=== PATIENT | male | born 1985 | race Caucasian/White ===

== ENCOUNTER 2020-05-03 10:31 | Emergency (ER) | payer OTHER, MEDICAID, SELFPAY ==
[2020-05-03] VITALS (13 sets, daily range): BP systolic 99–114; BP diastolic 57–86; PULSE 77–97; RESP 20–24; TEMP 36.9–37.2; O2SAT 91–95; BMI 33.5
--- NOTE | 2020-05-03 10:46 | DI.RAD.S_ITS ---
PROCEDURE: XR CHEST 2V INDICATIONS: possible aspiration, shortness of breath TECHNIQUE: 2 views of the chest were acquired. COMPARISON: [facility], , CHEST 2 VIEW, 12/13/2017, 17:59. FINDINGS: Surgical changes and devices: None. Lungs and pleura: Left lung base/retrocardiac airspace opacity. Mild suprahilar airspace opacity bilaterally which appears similar to the prior exam. No pleural effusions or pneumothorax. Bronchial wall thickening is seen. Mediastinum: Mediastinal contours are normal. Heart size is normal. Bones and chest wall: No suspicious bony abnormalities. Soft tissues appear unremarkable. IMPRESSION: Left lower lobe airspace opacity. Concern for aspiration or pneumonia. Dictated by: Natan Jones M.D. on 05/03/2020 at 11:34 Approved by: Natan Jones M.D. on 05/03/2020 at 11:35
[2020-05-03] MEDS: ALBUTEROL 2.5 MG/3 ML NEB (ADULT) INH ×4 (10:48→17:26)
--- NOTE | 2020-05-03 11:45 | DI.CT.S_ITS ---
PROCEDURE: CT CHEST WO CON INDICATIONS: chocked on peanuts 4 days ago, concerns for retaining peanut TECHNIQUE: Noncontrast 5 mm thick sections acquired from the pulmonary apices to the posterior costophrenic angles. 1 mm lung window, 5 mm thick coronal and sagittal and 7 mm axial MIP reformats were then acquired. For radiation dose reduction, the following was used: automated exposure control, adjustment of mA and/or kV according to patient size. COMPARISON: [facility], , CHEST 2 VIEW, 12/13/2017, 17:59. [facility], CR, XR CHEST 2V, 05/03/2020, 10:52. FINDINGS: Image quality: There are respiratory motion artifacts. Lungs and pleura: Bilateral patchy ground-glass and nodular opacities consistent with aspiration pneumonia, predominantly involving the right upper lobe and left lower lobe. There is right upper lobe and lingula atelectasis. There is bronchial wall thickening bilaterally. There is narrowing and filling defect of the right lower lobe lobar bronchus, probably secondary to combination of bronchial wall thickening and mucous. The right lower lobe a small lucent, likely secondary to air trapping. A 3 mm nodular density independent distal trachea at the level of piper is probably a mucous secretion material or small foreign body fragment. Trace left pleural effusion. No pneumothorax. Mediastinum: Heart size is normal. No pericardial effusion. Prominent mediastinal adenopathy is likely reactive. Thoracic aorta and central pulmonary arteries are normal in size. Esophagus is normal in caliber. Small hiatal hernia. Bones and chest wall: No suspicious bony lesions. No vertebral body compression fractures. No axillary or supraclavicular adenopathy by size criteria. Thyroid gland normal. Abdomen: Visualized upper abdominal solid organs and bowel loops appear normal in the absence of contrast. IMPRESSION: 1. Aspiration pneumonia bilaterally, most severe in right upper lobe and left lower lobe. 2. Narrowing of the right lower lobe bronchus. The right lower lobe is more lucent, likely secondary to air trapping. 3. Bronchial wall thickening bilaterally. 4. Right upper lobe and lingula atelectasis. 5. Trace left pleural effusion. Dictated by: Josh Rojas M.D. on 05/03/2020 at 12:05 Approved by: Josh Rojas M.D. on 05/03/2020 at 12:41
[2020-05-03 12:26] LABS: Add Manual Diff / Slide Review NO; Basophils Absolute Auto 100 /uL (0-100); Basophils Percent Auto 0.9 % (0-2); Eosinophils Absolute Auto 300 /uL (0-450); Eosinophils Percent Auto 2.5 % (2-4); Hematocrit 39.8 % (41-53); Hemoglobin 13.4 g/dL (13.5-17.5); Lymphocytes Absolute Auto 2200 /uL (1100-4500); Lymphocytes Percent Auto 20.4 % (25-40); Mean Corpuscular HGB Conc 33.7 % (30-36); Mean Corpuscular Hemoglobin 32.4 PG (26-34); Mean Corpuscular Volume 96.2 fL (80-100); Monocytes Absolute Auto 800 /uL (0-900); Monocytes Percent Auto 7.8 % (3-14); Neutrophils Absolute Auto 7200 /uL (1500-7000); Neutrophils Percent Auto 68.4 % (50-75); Platelet Count 266 X10^3/uL (150-400); Red Blood Cell Count 4.14 X10^6/uL (4.5-5.9); Red Cell Distribution Width 13.8 % (11.6-14.8); White Blood Cell Count 10.6 X10^3/uL (4.5-11.0)
--- NOTE | 2020-05-03 12:27 | PC.NURSE ---
This RN started IV, left room to get fluids and patient removed his IV. Mom does not want him to have another IV at this time. Notified Warren. She will talk to her
[2020-05-03 12:39] LABS: Alanine Aminotransferase 19 IU/L (<50); Albumin 3.9 g/dL (3.5-5.0); Albumin Globulin Ratio 1.1 (1.0-2.8); Alkaline Phosphatase 81 U/L (38-126); Aspartate Aminotransferase 25 IU/L (17-59); BUN Creatinine Ratio 18.9 (6-22); Bilirubin Total 0.7 mg/dL (0.2-1.3); Blood Urea Nitrogen 14 mg/dL (9-20); Calcium 9.2 mg/dL (8.4-10.2); Carbon Dioxide 30 mmol/L (22-32); Chloride 104 mmol/L (98-107); Estimated Glomerular Filt Rate > 60.0 mL/min (>60); Globulin 3.7 g/dL (1.7-4.1); Glucose 99 mg/dL (70-100); HEMOLYSIS < 15 (0-50); Potassium 4.4 mmol/L (3.4-5.1); Sodium 141 mmol/L (137-145); Total Protein 7.6 g/dL (6.3-8.2)
[2020-05-03 12:40] LABS: Lactate (Lactic Acid) 3.1 mmol/L (0.7-2.1)
[2020-05-03 12:53] LABS: Procalcitonin < 0.05 ng/mL (<0.5)
--- NOTE | 2020-05-03 13:19 | ED_ITS ---
HPI - SOB/Dyspnea <SHAUNA Olsen - Last Filed: 05/03/20 18:44> General Chief Complaint: Shortness of Breath/Dyspnea Stated Complaint: asthma attack Time Seen by Provider: 05/03/20 11:03 Source: family Mode of arrival: Wheelchair Limitations: language barrier History of Present Illness HPI Narrative: This is a 34 year male, nonsmoker, who has down syndrome with developmental delay and mild intermittent asthma presents to ED with mother who is retired pediatric physician with concerns for aspiration pneumonia. Mother reports he had handful of peanuts 4 days ago and he was choking and coughing. Since then, patient has wheezing requiring albuterol inhaler use every 3 hours while he is awake. Yesterday mother noticed his skin turned red and flushed and increasing short of breath mild exertion. Patient had vomited this morning after eating breakfast and looks like he is nauseated by witnessing gagging frequently. Mother reports patient rarely get asthma attack. Patient had once another aspiration pneumonia from eating peanuts and family have been cautious but somehow patient got to pain as before stopping. Since patient has low immune system from Down syndrome he gets pneumonia relatively frequently. Mother reports after the neb treatment in the ED, he was able to expectorated thick yellow mucus. Related Data Home Medications Medication Instructions Recorded Confirmed albuterol sulfate [Ventolin HFA] Unknown #0 12/13/17 fluoxetine 30 mg 05/03/20 levothyroxine 05/03/20 Allergies Allergy/AdvReac Type Severity Reaction Status Date / Time No Known Drug Allergies Allergy Verified 05/03/20 10:50 Review of Systems <SHAUNA Olsen - Last Filed: 05/03/20 18:44> Review of Systems Narrative: General: Denies (+) fever, chills, fatigue, malaise, sweats. HEENT: Denies sinus pain, ear pain, sore throat, difficulty swallowing, dizziness. Respiratory: See HPI Cardiovascular: Denies chest pain, palpitations, orthopnea, edema. Gastrointestinal: See HPI : Denies dysuria, frequency, incontinence, hematuria, urinary retention. Musculoskeletal: Denies weakness, joint pain or bony pain. Skin: Denies rash, skin lesions, or other. Neurologic: Denies weakness, headache, numbness, change in speech, confusion, seizures, incoordination. Psychiatric: Reports history of obsessive compulsive disorder. 12-point review of systems is negative except for those stated above. Patient History <SHAUNA Olsen - Last Filed: 05/03/20 18:44> Medical History Down syndrome (Acute) History of developmental delay (Acute) Hypothyroidism (Acute) Mild asthma (Acute) Obsessive compulsive disorder (Acute) Social History Smoking Status: Never smoker Smoking Status: Never smoker Substance Use Type: does not use Exam <SHAUNA Olsen - Last Filed: 05/03/20 18:44> Narrative Exam Narrative: GEN: Alert, oriented x 3, well appearing and nourished, and in no acute distress. Head: Normal cephalic, atraumatic. No scalp or temporal tenderness, palpable mass or rash. EYES: Pupils are equal, round, and reactive to light and accommodation. Extraocular muscles are intact bilaterally. There is no subconjunctival hemorrhage, exudate and sclera non-icteric. ENT: Bilateral auditory canals and tympanic membranes clear. Hearing grossly intact. Nose without bleeding, purulent discharge or deviation. Facial sinuses nontender to palpate. Mucous membrane moist, no mucosal lesion. Throat without erythema, tonsillar hypertrophy or exudate. Uvula in midline, airway patent. Neck: Trachea in midline. No JVD, non-tender without lymphadenopathy. No masses or thyroid megaly. Supple, non-tender and no meningeal signs. CARDIAC: Normal regular rate and rhythm without murmurs, gallops, or rubs. No chest wall tenderness. No peripheral edema, cyanosis or pallor. Capillary refill is less than 2 seconds. RESPIRATORY: Audible wheezing without the stethoscope. Lungs wheeze throughout in all lobes.. Intermittent nonproductive cough. No stridor, respiratory dis tress, increase work of breathing, or accessary muscle used. ABD: Abdomen soft, nontender and non-distended. No guarding or rebound tenderness to palpate. Bowel sounds are normal in all 4 quadrants. There is no palpable masses or organomegaly. EXT: Full painless ROM of all extremities with no loss of sensation, strength, effusion or edema. SKIN: Warm, dry, normal color for patient. No erythema, lesions or rash over visible areas. BACK: Nontender without deformity or crepitance. No flank tenderness. NEUROLOGICAL: Awake and alert. Interacts well with mother. Initial Vital Signs Initial Vital Signs: Vital Signs Temperature 98.5 F 05/03/20 10:42 Pulse Rate 83 05/03/20 10:42 Respiratory Rate 24 05/03/20 10:42 Blood Pressure 114/86 05/03/20 10:42 Pulse Oximetry 91 05/03/20 10:42 <Jared Rizvi MD - Last Filed: 05/04/20 07:18> Initial Vital Signs Initial Vital Signs: Vital Signs Temperature 98.5 F 05/03/20 10:42 Pulse Rate 83 05/03/20 10:42 Respiratory Rate 24 05/03/20 10:42 Blood Pressure 114/86 05/03/20 10:42 Pulse Oximetry 91 05/03/20 10:42 Scores <SHAUNA Olesn - Last Filed: 05/03/20 18:44> GCS [place] coma scale eye opening: Spontaneous Shannan coma scale verbal response: Orientated [place] coma scale motor response: Obey commands Shannan coma scale total score: 15 qSOFA Altered Mental Status (GCS <15): No Respiratory rate greater than/equal to 22: No Systolic blood pressure less than or equal to 100: No qSOFA Total: 0 0-1 Not High Risk 1-3 High risk Course <SHAUNA Olsen - Last Filed: 05/03/20 18:44> Orders Ordered: Discontinued Medications Albuterol (Ventolin) 2.5 mg INH NOW ONE Stop: 05/03/20 10:47 Last Admin: 05/03/20 10:48 Dose: 2.5 mg Documented by: KENNETH Albuterol (Ventolin) 2.5 mg INH NOW ONE Stop: 05/03/20 11:39 Last Admin: 05/03/20 12:39 Dose: 2.5 mg Documented by: ELBA Albuterol (Ventolin) 2.5 mg INH NOW ONE Stop: 05/03/20 16:27 Last Admin: 05/03/20 16:30 Dose: 2.5 mg Documented by: TANRIDLOREN Albuterol (Ventolin) 2.5 mg INH NOW ONE Stop: 05/03/20 16:56 Last Admin: 05/03/20 17:26 Dose: 2.5 mg Documented by: ELBA Sodium Chloride (Normal Saline 0.9%) 500 mls @ 1,000 mls/hr IV BOLUS ONE Stop: 05/03/20 12:07 Last Admin: 05/03/20 15:14 Dose: Not Given Documented by: ESTRELLITA Piperacillin/Tazobactam/Dextrose (Zosyn) 4.5 gm in 100 mls @ 200 mls/hr IV NOW ONE Stop: 05/03/20 13:22 Last Infusion: 05/03/20 15:14 Dose: 0 mls/hr Documented by: Admin: 05/03/20 13:44 Dose: 200 mls/hr Documented by: ESTRELLITA Sodium Chloride (Normal Saline 0.9%) 1,000 mls @ 1,000 mls/hr IV BOLUS ONE Stop: 05/03/20 13:57 Last Infusion: 05/03/20 15:14 Dose: 0 mls/hr Documented by: Admin: 05/03/20 13:44 Dose: 1,000 mls/hr Documented by: ESTRELLITA Reevaluation(s) Reevaluation #1: The patient is able to speak short sentences without difficulty without respiratory distress. Receiving IV fluid and IV antibiotic medication. Keeping O2 said and 91-92% in room air. Time: 14:20 Reevaluation #2: Another nebulizer treatment has been ordered secondary to recurring coughing. Time: 16:31 Consultations Consultation #1: 1300-Spoke with , hospitalist to consult for admission. Concerns for possible bronchoscopy either to remove possible foreign body versus mucus aspiration in lower lobes in his lungs. If bronchoscope is not able to be done by surgeon in , recommended patient to be transferred to acute facility. Time: 13:00 Consultation #2: Dr. Blackmon, surgeon, paged but no returned call, and is in OR, projecting till 1415. Time: 13:07 Consultation #3: [facility] has been contacted to consult and possible transfer. Time: 13:30 Additional Consultation(s): 1415-Dr. Blackmon paged again. 1445-Dr. Blackmon called and informed that does not do bronchoscopy. 1518-Dr. Christiansen, Strategic Manager, at [facility] consulted and it was recommended to talk to hospitalist for admission and patient does not require to be in ICU. 5075-Spoke with STERLING Simpson, Hospitalist at [facility] she kindly accepted patient's care for possible bronchoscopy procedure and continuing IV IV medication therapy for aspiration pneumonia Vital Signs Vital signs: Vital Signs - 8 hr 05/03/20 10:42 05/03/20 10:48 05/03/20 12:29 Temperature 98.5 F Pulse Rate 83 77 83 Respiratory Rate 24 20 24 Blood Pressure 114/86 107/57 L Pulse Oximetry 91 94 92 05/03/20 13:01 05/03/20 14:54 05/03/20 15:00 Temperature Pulse Rate 97 H 81 85 Respiratory Rate 24 Blood Pressure 101/73 Pulse Oximetry 92 05/03/20 15:30 05/03/20 16:00 05/03/20 16:01 Temperature Pulse Rate 85 87 83 Respiratory Rate Blood Pressure 114/81 Pulse Oximetry 93 92 92 05/03/20 16:25 05/03/20 16:31 05/03/20 17:44 Temperature 99 F Pulse Rate 91 H 78 Respiratory Rate 20 Blood Pressure 99/83 Pulse Oximetry 95 94 <Jared Rizvi MD - Last Filed: 05/04/20 07:18> Orders Ordered: Discontinued Medications Albuterol (Ventolin) 2.5 mg INH NOW ONE Stop: 05/03/20 10:47 Last Admin: 05/03/20 10:48 Dose: 2.5 mg Documented by: RSELFRIDGE Albuterol (Ventolin) 2.5 mg INH NOW ONE Stop: 05/03/20 11:39 Last Admin: 05/03/20 12:39 Dose: 2.5 mg Documented by: STESTEFANIA Albuterol (Ventolin) 2.5 mg INH NOW ONE Stop: 05/03/20 16:27 Last Admin: 05/03/20 16:30 Dose: 2.5 mg Documented by: RSELFRIDGE Albuterol (Ventolin) 2.5 mg INH NOW ONE Stop: 05/03/20 16:56 Last Admin: 05/03/20 17:26 Dose: 2.5 mg Documented by: ELBA Sodium Chloride (Normal Saline 0.9%) 500 mls @ 1,000 mls/hr IV BOLUS ONE Stop: 05/03/20 12:07 Last Admin: 05/03/20 15:14 Dose: Not Given Documented by: ESTRELLITA Piperacillin/Tazobactam/Dextrose (Zosyn) 4.5 gm in 100 mls @ 200 mls/hr IV NOW ONE Stop: 05/03/20 13:22 Last Infusion: 05/03/20 15:14 Dose: 0 mls/hr Documented by: Admin: 05/03/20 13:44 Dose: 200 mls/hr Documented by: ESTRELLITA Sodium Chloride (Normal Saline 0.9%) 1,000 mls @ 1,000 mls/hr IV BOLUS ONE Stop: 05/03/20 13:57 Last Infusion: 05/03/20 15:14 Dose: 0 mls/hr Documented by: Admin: 05/03/20 13:44 Dose: 1,000 mls/hr Documented by: ESTRELLITA Vital Signs Vital signs: Vital Signs - 8 hr 05/03/20 10:42 05/03/20 10:48 05/03/20 12:29 Temperature 98.5 F Pulse Rate 83 77 83 Respiratory Rate 24 20 24 Blood Pressure 114/86 107/57 L Pulse Oximetry 91 94 92 05/03/20 13:01 05/03/20 14:54 05/03/20 15:00 Temperature Pulse Rate 97 H 81 85 Respiratory Rate 24 Blood Pressure 101/73 Pulse Oximetry 92 05/03/20 15:30 05/03/20 16:00 05/03/20 16:01 Temperature Pulse Rate 85 87 83 Respiratory Rate Blood Pressure 114/81 Pulse Oximetry 93 92 92 05/03/20 16:25 05/03/20 16:31 05/03/20 17:44 Temperature 99 F Pulse Rate 91 H 78 Respiratory Rate 20 Blood Pressure 99/83 Pulse Oximetry 95 94 MDM - SOB/Dyspnea <SHAUNA Olsen - Last Filed: 05/03/20 18:44> Differential Diagnosis Differential diagnosis: Likely asthma with exacerbation and other (Aspiration pneumonia, foreign body in lungs) Medical Records Attestation: I reviewed the patient's medical records. Lab Data Attestation: I reviewed the patient's lab results. Result diagrams: 05/03/20 12:15 05/03/20 12:15 Labs: Lab Results 05/03/20 05/03/20 05/03/20 Range/Units 12:15 12:15 12:15 WBC 10.6 (4.5-11.0) X10^3/uL RBC 4.14 L (4.5-5.9) X10^6/uL Hgb 13.4 L (13.5-17.5) g/dL Hct 39.8 L (41-53) % MCV 96.2 (80-100) fL MCH 32.4 (26-34) PG MCHC 33.7 (30-36) % RDW 13.8 (11.6-14.8) % Plt Count 266 (150-400) X10^3/uL Neut % (Auto) 68.4 (50-75) % Lymph % (Auto) 20.4 L (25-40) % Hickman % (Auto) 7.8 (3-14) % Eos % (Auto) 2.5 (2-4) % Baso % (Auto) 0.9 (0-2) % Neut # (Auto) 7200 H (9059-0591) /uL Lymph # (Auto) 2200 (2213-1151) /uL Hickman # (Auto) 800 (0-900) /uL Eos # (Auto) 300 (0-450) /uL Baso # (Auto) 100 (0-100) /uL Sodium 141 (137-145) mmol/L Potassium 4.4 (3.4-5.1) mmol/L Chloride 104 (98-107) mmol/L Carbon Dioxide 30 (22-32) mmol/L BUN 14 (9-20) mg/dL Creatinine 0.74 (0.66-1.25) mg/dL Estimated GFR > 60.0 (>60) mL/min BUN/Creatinine Ratio 18.9 (6-22) Glucose 99 (70-100) mg/dL Lactate (0.7-2.1) mmol/L Calcium 9.2 (8.4-10.2) mg/dL Total Bilirubin 0.7 (0.2-1.3) mg/dL AST 25 (17-59) IU/L ALT 19 (<50) IU/L Alkaline Phosphatase 81 (38-126) U/L Total Protein 7.6 (6.3-8.2) g/dL Albumin 3.9 (3.5-5.0) g/dL Globulin 3.7 (1.7-4.1) g/dL Albumin/Globulin Ratio 1.1 (1.0-2.8) Procalcitonin < 0.05 (<0.5) ng/mL COVID-19 PCR (Negative) 05/03/20 05/03/20 05/03/20 Range/Units 12:15 12:34 14:23 WBC (4.5-11.0) X10^3/uL RBC (4.5-5.9) X10^6/uL Hgb (13.5-17.5) g/dL Hct (41-53) % MCV (80-100) fL MCH (26-34) PG MCHC (30-36) % RDW (11.6-14.8) % Plt Count (150-400) X10^3/uL Neut % (Auto) (50-75) % Lymph % (Auto) (25-40) % Hickman % (Auto) (3-14) % Eos % (Auto) (2-4) % Baso % (Auto) (0-2) % Neut # (Auto) (9086-1797) /uL Lymph # (Auto) (2330-5084) /uL Hickman # (Auto) (0-900) /uL Eos # (Auto) (0-450) /uL Baso # (Auto) (0-100) /uL Sodium (137-145) mmol/L Potassium (3.4-5.1) mmol/L Chloride (98-107) mmol/L Carbon Dioxide (22-32) mmol/L BUN (9-20) mg/dL Creatinine (0.66-1.25) mg/dL Estimated GFR (>60) mL/min BUN/Creatinine Ratio (6-22) Glucose (70-100) mg/dL Lactate 3.1 H 1.0 (0.7-2.1) mmol/L Calcium (8.4-10.2) mg/dL Total Bilirubin (0.2-1.3) mg/dL AST (17-59) IU/L ALT (<50) IU/L Alkaline Phosphatase (38-126) U/L Total Protein (6.3-8.2) g/dL Albumin (3.5-5.0) g/dL Globulin (1.7-4.1) g/dL Albumin/Globulin Ratio (1.0-2.8) Procalcitonin (<0.5) ng/mL COVID-19 PCR Negative (Negative) Imaging Data Chest x-ray: Radiologist's Impression: [address] [address] XRay Report Signed Patient: Gennaro Obregon PMR#: [id number] : 1985Acct:[id number] Age/Sex: 34 / MDate of Service: 05/03/20 Loc: ED Accession Number: [id number] Procedure: XR chest 2V Ordering Provider: Jared Rizvi MD PROCEDURE: XR CHEST 2V INDICATIONS: possible aspiration, shortness of breath TECHNIQUE: 2 views of the chest were acquired. COMPARISON: [facility], CHEST 2 VIEW, 12/13/2017, 17:59. FINDINGS: Surgical changes and devices: None. Lungs and pleura: Left lung base/retrocardiac airspace opacity. Mild suprahilar airspace opacity bilaterally which appears similar to the prior exam. No pleural effusions or pneumothorax. Bronchial wall thickening is seen. Mediastinum: Mediastinal contours are normal. Heart size is normal. Bones and chest wall: No suspicious bony abnormalities. Soft tissues appear unremarkable. IMPRESSION: Left lower lobe airspace opacity. Concern for aspiration or pneumonia. Dictated by: Natan Jones M.D. on 05/03/2020 at 11:34 Approved by: Natan Jones M.D. on 05/03/2020 at 11:35 CT scan - chest: Radiologist's Impression: MindiGennaro P 34 M [address] [address] [address] Scan Report Signed Patient: Gennaro Obregon PMR#: [id number] : 1985Acct:[id number] Age/Sex: 34 / MDate of Service: 05/03/20 Loc: ED Accession Number: [id number] Procedure: CT chest wo con Ordering Provider: Warren Harp PROCEDURE: CT CHEST WO CON INDICATIONS: chocked on peanuts 4 days ago, concerns for retaining peanut TECHNIQUE: Noncontrast 5 mm thick sections acquired from the pulmonary apices to the posterior costophrenic angles. 1 mm lung window, 5 mm thick coronal and sagittal and 7 mm axial MIP reformats were then acquired. For radiation dose reduction, the following was used: automated exposure control, adjustment of mA and/or kV according to patient size. COMPARISON: [facility], , CHEST 2 VIEW, 12/13/2017, 17:59. [facility], , XR CHEST 2V, 05/03/2020, 10:52. FINDINGS: Image quality: There are respiratory motion artifacts. Lungs and pleura: Bilateral patchy ground-glass and nodular opacities consistent with aspiration pneumonia, predominantly involving the right upper lobe and left lower lobe. There is right upper lobe and lingula atelectasis. There is bronchial wall thickening bilaterally. There is narrowing and filling defect of the right lower lobe lobar bronchus, probably secondary to combination of bronchial wall thickening and mucous. The right lower lobe a small lucent, likely secondary to air trapping. A 3 mm nodular density independent distal trachea at the level of piper is probably a mucous secretion material or small foreign body fragment. Trace left pleural effusion. No pneumothorax. Mediastinum: Heart size is normal. No pericardial effusion. Prominent mediastinal adenopathy is likely reactive. Thoracic aorta and central pulmonary arteries are normal in size. Esophagus is normal in caliber. Small hiatal hernia. Bones and chest wall: No suspicious bony lesions. No vertebral body compression fractures. No axillary or supraclavicular adenopathy by size criteria. Thyroid gland normal. Abdomen: Visualized upper abdominal solid organs and bowel loops appear normal in the absence of contrast. IMPRESSION: 1. Aspiration pneumonia bilaterally, most severe in right upper lobe and left lower lobe. 2. Narrowing of the right lower lobe bronchus. The right lower lobe is more lucent, likely secondary to air trapping. 3. Bronchial wall thickening bilaterally. 4. Right upper lobe and lingula atelectasis. 5. Trace left pleural effusion. Dictated by: Josh Rojas M.D. on 05/03/2020 at 12:05 Approved by: Josh Rojas M.D. on 05/03/2020 at 12:41 MDM Narrative Medical decision making narrative: This is a 34-year-old male who has history of developmental delay, Down syndrome, hypothyroidism presents to ED with difficulty breathing and possible fever after he had choked and coughed on handful peanuts 4 days ago. He has history of aspiration pneumonia in the past from peanuts. O2 sat is from 88-92% in RA w/o respiratory distress. Skin moist to touch. The patient is happy and is able to speak short sentences without difficulty. Lung sounds wheezing in all lobes. No leukocytosis white count of 10.6 but slightly elevated neutrophil count of 7200. Initial lactate 3.1. Negative procalcitonin. Unremarkable chemistry test. Covid swab has been obtained for rapid testing. CXR test shows concerns for left lower lobe aspiration pneumonia. Non contrast CT has been ordered to rule out foreign body and it shows aspiration pneumonia bilaterally worse in right upper lobe and left lower lobe. Also narrowing of the right lower lobe bronchus with lucency likely secondary to air trapping. There is 3 mm nodular density at the level of piper probably a mucus secretion material or small foreign body fragment. Spoke with hospitalist Dr. Downing and she was concerned for possible bronchoscopy which is not available at [facility] recommend transfer patient to appropriate level of care facility. Patient has been accepted at [facility] by STERLING Simpson for aspiration pneumonia and possible bronchoscopy. Patient had received 1 L of normal saline and 4.5 G of Zosyn in ED. He received several nebulizer treatment in ED. no acute distress at this time and is able to maintain O2 said mostly at 92%. Patient has removed PIV x 2 and mother refusing another IV insertion at this ti wa. The patient received additional 2 doses of neb treatment before leaving ED for mildly increased work of breathing and coughing. He was able to maintain O2 said in 92-94%. He is happy and frequently laughing. <Jared Rizvi MD - Last Filed: 05/04/20 07:18> Lab Data Labs: Lab Results 05/03/20 05/03/20 05/03/20 Range/Units 12:15 12:15 12:15 WBC 10.6 (4.5-11.0) X10^3/uL RBC 4.14 L (4.5-5.9) X10^6/uL Hgb 13.4 L (13.5-17.5) g/dL Hct 39.8 L (41-53) % MCV 96.2 (80-100) fL MCH 32.4 (26-34) PG MCHC 33.7 (30-36) % RDW 13.8 (11.6-14.8) % Plt Count 266 (150-400) X10^3/uL Neut % (Auto) 68.4 (50-75) % Lymph % (Auto) 20.4 L (25-40) % Hickman % (Auto) 7.8 (3-14) % Eos % (Auto) 2.5 (2-4) % Baso % (Auto) 0.9 (0-2) % Neut # (Auto) 7200 H (1854-3710) /uL Lymph # (Auto) 2200 (7707-4029) /uL Hickman # (Auto) 800 (0-900) /uL Eos # (Auto) 300 (0-450) /uL Baso # (Auto) 100 (0-100) /uL Sodium 141 (137-145) mmol/L Potassium 4.4 (3.4-5.1) mmol/L Chloride 104 (98-107) mmol/L Carbon Dioxide 30 (22-32) mmol/L BUN 14 (9-20) mg/dL Creatinine 0.74 (0.66-1.25) mg/dL Estimated GFR > 60.0 (>60) mL/min BUN/Creatinine Ratio 18.9 (6-22) Glucose 99 (70-100) mg/dL Lactate (0.7-2.1) mmol/L Calcium 9.2 (8.4-10.2) mg/dL Total Bilirubin 0.7 (0.2-1.3) mg/dL AST 25 (17-59) IU/L ALT 19 (<50) IU/L Alkaline Phosphatase 81 (38-126) U/L Total Protein 7.6 (6.3-8.2) g/dL Albumin 3.9 (3.5-5.0) g/dL Globulin 3.7 (1.7-4.1) g/dL Albumin/Globulin Ratio 1.1 (1.0-2.8) Procalcitonin < 0.05 (<0.5) ng/mL COVID-19 PCR (Negative) 05/03/20 05/03/20 05/03/20 Range/Units 12:15 12:34 14:23 WBC (4.5-11.0) X10^3/uL RBC (4.5-5.9) X10^6/uL Hgb (13.5-17.5) g/dL Hct (41-53) % MCV (80-100) fL MCH (26-34) PG MCHC (30-36) % RDW (11.6-14.8) % Plt Count (150-400) X10^3/uL Neut % (Auto) (50-75) % Lymph % (Auto) (25-40) % Hickman % (Auto) (3-14) % Eos % (Auto) (2-4) % Baso % (Auto) (0-2) % Neut # (Auto) (6586-2582) /uL Lymph # (Auto) (5913-1024) /uL Hickman # (Auto) (0-900) /uL Eos # (Auto) (0-450) /uL Baso # (Auto) (0-100) /uL Sodium (137-145) mmol/L Potassium (3.4-5.1) mmol/L Chloride (98-107) mmol/L Carbon Dioxide (22-32) mmol/L BUN (9-20) mg/dL Creatinine (0.66-1.25) mg/dL Estimated GFR (>60) mL/min BUN/Creatinine Ratio (6-22) Glucose (70-100) mg/dL Lactate 3.1 H 1.0 (0.7-2.1) mmol/L Calcium (8.4-10.2) mg/dL Total Bilirubin (0.2-1.3) mg/dL AST (17-59) IU/L ALT (<50) IU/L Alkaline Phosphatase (38-126) U/L Total Protein (6.3-8.2) g/dL Albumin (3.5-5.0) g/dL Globulin (1.7-4.1) g/dL Albumin/Globulin Ratio (1.0-2.8) Procalcitonin (<0.5) ng/mL COVID-19 PCR Negative (Negative) Discharge Plan Departure Patient Disposition: [facility] Clinical Impression: Aspiration pneumonia Qualifiers: Aspiration pneumonia type: unspecified Laterality: bilateral Lung location: unspecified part of lung Qualified Code(s): J69.0 - Pneumonitis due to inhalation of food and vomit Discharge Date/Time: 05/03/20 18:50 Prescriptions: No Action albuterol sulfate [Ventolin HFA] 90 MCG/PUFF HFA aerosol inhaler Unknown Qty: 0 RF: 0 levothyroxine 137 mcg tablet RF: 0 fluoxetine 20 mg capsule 30 mg RF: 0 Referrals: Gianluca Beckford MD [Primary Care Provider] - <Jared Rizvi MD - Last Filed: 05/04/20 07:18> Cosign ED Attending Cosignature Attestation: I was immediately available in the department for consultation. This documentation has been reviewed and I agree with assessment and plan. Supervised by Jared Rizvi MD
[2020-05-03] MEDS: PIPERACILLIN-TAZO 4.5 GM/100 ML FROZ.PIGGY IV (13:44)
[2020-05-03] MEDS: SODIUM CHLORIDE 0.9% 1,000 ML 1000 ML IV (13:44)
[2020-05-03 14:23] LABS: Reflexed Lactate in 2 Hours Y
--- NOTE | 2020-05-03 15:20 | PC.NURSE ---
1L bolus and IV abx finished infusing. Pt then got very agitated and pulled out IV. aware.
--- NOTE | 2020-05-03 16:37 | PC.NURSE ---
Waiting for room number from [facility]. Discussed transport and IV placement for trip. Mom feels that pt will just pull out the IV and requests to wait until arrival at [facility] for IV placement. Pt also intermittently pulling O2 sat monitor sticker off of finger at this time.
[2020-05-03 16:41] LABS: COVID19 -Nasal RAPID Negative (Negative)
== END 2020-05-03 18:50 | disposition short-term general hospital (02) ==
PROVIDERS: Emergency Provider Nurse Practitioner Family; PCP Internal Medicine
DX: J69.0 Pneumonitis due to inhalation of food and vomit (principal); Q90.9 Down syndrome, unspecified; R06.82 Tachypnea, not elsewhere classified
CPT/HCPCS: 36415; 71046; 71250; 80053; 83605; 84145; 85025; 87040; 87635; 94640; 96365; 99284; J2543; J7613

== ENCOUNTER → 2020-12-28 11:12 | Outpatient (CLI) | payer MEDICARE, SELFPAY ==
[2020-12-28] MEDS: COVID-19 VACC #1, MRNA(MOD) 100 MCG/0.5 ML VIAL IM (11:27)
== END ==
PROVIDERS: PCP Internal Medicine; Visit Provider Internal Medicine
DX: Z23 Encounter for immunization (principal)
CPT/HCPCS: 0011A; 91301

== ENCOUNTER → 2021-01-26 11:06 | Outpatient (CLI) | payer MEDICARE, SELFPAY ==
[2021-01-26] MEDS: COVID-19 VACC #2, MRNA(MOD) 100 MCG/0.5 ML VIAL IM (11:18)
== END ==
PROVIDERS: PCP Internal Medicine; Visit Provider Internal Medicine
DX: Z23 Encounter for immunization (principal)
CPT/HCPCS: 0012A; 91301

== ENCOUNTER 2023-04-21 19:43 | Emergency (ER) | payer OTHER, MEDICAID, SELFPAY ==
[2023-04-21 19:43] VITALS: BP 152/116; PULSE 129; RESP 24; TEMP 39.1; O2SAT 90; BMI 33.3
--- NOTE | 2023-04-21 19:58 | ED_ITS ---
HPI - SOB/Dyspnea General Chief Complaint: Shortness of Breath/Dyspnea Stated Complaint: RT. rib pain temp 101 Time Seen by Provider: 04/21/23 19:58 Source: patient, family, EMS, RN notes reviewed and old records reviewed Mode of arrival: EMS Limitations: other (Down syndrome) History of Present Illness HPI Narrative: This is a 37-year-old male with history of Down syndrome with moderately severe mental retardation, hypothyroidism, gluten sensitivity, mild intermittent asthma, OCD, behavioral issues and severe sleep apnea. Patient has had prior aspiration events with pneumonia in 2019 aspirated and required bronchoscopy. Patient recently developed a right lower lobe pneumonia was up in [place], mom states that they had to do general anesthesia nor any IV access and then do his bronchoscopy. She states last time he was here he pulled his IV out several times. They reluctant to allow IV placement at this time or attempt with sedation. Patient was placed on cefdinir around March 01 for aspiration pneumonia he was discharged home at that time. Patient since then has had some cough but has been stable. She noted he is had some mild fevers in the last couple days and persistent dry cough. Mom states today he was much less active and having trouble getting around she is noticed he is had some increasing shortness of breath today. She states he did vomit 2 or 3 times. Has not had any diarrhea constipation or urinary symptoms. He has not appointment tomorrow with Dr. Latisha Niño for pulmonology in [place]. He also had a recent course of Septra for some pustules on his inner thigh which he completed about a week ago. Daily medications include levothyroxine, Prozac, Risperdal and melatonin. He uses a CPAP when sleeping but sometimes does not use. Mom states he has been a little bit more agitated today unless cooperative than normal. No tobacco, alcohol or illicit. His mother is a retired associate team physician and she and his father are accompanying patient. Patient's primary care is Dr. Beckford. Dr. Castañeda for pulmonology at [place]. Related Data Home Medications Medication Instructions Recorded Confirmed albuterol sulfate 90 mcg/actuation Unknown ##0 12/13/17 03/22/22 aerosol inhaler (Ventolin HFA) fluoxetine 20 mg capsule 30 mg 05/03/20 03/22/22 levothyroxine 137 mcg tablet 05/03/20 03/22/22 ResMed AirSense 11 auto 03/22/22 03/22/22 Previous Rx's Medication Instructions Recorded cefdinir 300 mg capsule 300 mg PO BID #20 caps 04/21/23 prednisone 20 mg tablet 40 mg PO DAILY #10 tabs 04/21/23 Allergies Allergy/AdvReac Type Severity Reaction Status Date / Time No Known Drug Allergies Allergy Verified 04/21/23 20:09 Review of Systems Review of Systems ROS Unobtainable: All systems reviewed & are unremarkable except as noted in HPI and below Patient History Medical History (Updated 04/21/23 @ 21:13 by Apurva Morel DO) Down syndrome History of developmental delay Hypothyroidism Mild asthma Obsessive compulsive disorder Social History Smoking Status: Never smoker Smoking Status: Never smoker Substance Use Type: does not use Exam Narrative Exam Narrative: GEN: well nourished, well appearing male, alert and oriented x 3, patient appears to be in mild distress. HEENT: Atraumatic, pupils are equal round reactive to light, extraocular movements are intact, nares are clear. HEART: Regular rate and rhythm without murmur, clicks, rubs. pulses are equal in upper extremities. LUNGS:Lungs clear to auscultation, no wheezes on anterior chest but patient has several layers of clothes and difficult to assess on posterior chest. No rales, crackles, chest moves symmetrically, mild tachypnea. No accessory muscle use. ABD:bowel sounds normal, soft, non-tender, no guarding, rebound, rigidity, no masses noted, no hepatosplenomegaly :No CVA tenderness, MSCL: Non-tender, no muscle atrophy, muscles strength 5/5 upper and lower extremities, full range of motion NEURO:CN 2-12 intact, sensation normal SKIN: No rash, erythema or other skin changes noted Initial Vital Signs Initial Vital Signs: Vital Signs Temperature 102.4 F H 04/21/23 19:43 Pulse Rate 129 H 04/21/23 19:43 Respiratory Rate 24 04/21/23 19:43 Blood Pressure 152/116 H 04/21/23 19:43 Pulse Oximetry 90 L 04/21/23 19:43 Oxygen Delivery Method Room Air 04/21/23 19:43 Course Orders Ordered: Discontinued Medications Acetaminophen (Acetaminophen 325 Mg Tablet) 975 mg PO NOW ONE Stop: 04/21/23 20:01 Last Admin: 04/21/23 20:23 Dose: 975 mg Documented By: MARGARETH Albuterol/Ipratropium (Albuterol/Ipratropium 3 Ml Ampul) 3 ml INH NOW ONE Stop: 04/21/23 20:04 Last Admin: 04/21/23 20:56 Dose: 3 ml Documented By: MARGARETH Amoxicillin/Clavulanate Potassium (Amoxicillin/Clav 875/125 Mg) 1 tab PO NOW ONE Stop: 04/21/23 21:33 Last Admin: 04/21/23 21:36 Dose: Not Given Documented By: MARGARETH Cefdinir (Cefdinir 300 Mg Capsule) 300 mg PO NOW ONE Stop: 04/21/23 21:35 Last Admin: 04/21/23 21:44 Dose: 300 mg Documented By: MARGARETH Piperacillin Sod/Tazobactam (Sod 4.5 gm/ Sodium Chloride) 100 mls @ 200 mls/hr IV NOW ONE Stop: 04/21/23 20:00 Last Admin: 04/21/23 21:35 Dose: Not Given Documented By: MARGARETH Methylprednisolone (Methylprednisolone 125 Mg/2 Ml Vial) 125 mg IV NOW ONE Stop: 04/21/23 20:01 Last Admin: 04/21/23 21:35 Dose: Not Given Documented By: MARGARETH Prednisone (Prednisone 20 Mg Tablet) 60 mg PO NOW ONE Stop: 04/21/23 20:02 Last Admin: 04/21/23 20:23 Dose: 60 mg Documented By: MARGARETH Vital Signs Vital signs: Vital Signs - 8 hr 04/21/23 19:43 04/21/23 20:23 04/21/23 20:56 Temperature 102.4 F H 102.4 F H Pulse Rate 129 H Respiratory Rate 24 Blood Pressure 152/116 H Pulse Oximetry 90 L 94 Oxygen Delivery Method Room Air Room Air 04/21/23 20:39 04/21/23 21:16 Temperature Pulse Rate 102 H Respiratory Rate 20 Blood Pressure 136/72 Pulse Oximetry 92 Oxygen Delivery Method Room Air MDM - SOB/Dyspnea Imaging Data Chest x-ray: Radiologist's Impression: Close Chest X-Ray (Signed) Davey Rehman - 04/21/[address] [address] XRay Report Signed Patient: Gennaro Obregon MR#: [id number] : 1985 Acct:[id number] Age/Sex: 37 / M Date of Service: 04/21/23 Loc: ED Accession Number: [id number] ?? Procedure: XR chest 1V Ordering Provider: Apurva Morel D.O. PROCEDURE:? XR CHEST 1V ? INDICATIONS:? fever, cough, hx of aspiration. ? TECHNIQUE:? One view of the chest was acquired.? ? COMPARISON:? [facility], , XR CHEST 2V, 05/03/2020, 10:52. ? FINDINGS:? ? Surgical changes and devices:? None.? ? Lungs and pleura:? There are confluent airspace opacities in the right lung base consistent with consolidation.? A small right pleural effusion is present.? No pneumothorax. ? Mediastinum:? Mediastinal contours appear normal.? Heart size is normal.? ? Bones and chest wall:? No suspicious bony lesions.? Overlying soft tissues appear unremarkable.? ? IMPRESSION:? ? 1. Right basilar consolidation likely due to pneumonia given clinical history. ? 2. Small right parapneumonic pleural effusion.? ? Dictated by: Davey Rehman M.D. on 04/21/2023 at 20:28 ? ? Approved by: Davey Rehman M.D. on 04/21/2023 at 20:39?? [facility] Narrative Medical decision making narrative: This is a 37-year-old male who presented with complaint of right-sided chest pain fever he had aspiration pneumonia in February he has had prior aspiration of nuts and required bronchoscopy. His mother states he received cefdinir and was discharged as an outpatient for [facility] at the end of February and at that time has been improving but then started to have new episode consistent with increased cough in the last day just felt a lot worse. He is alert active he has a history of Down syndrome and mom notes very difficult to get IV access lab work or these sort of intervention. We discussed sedation or procedural sedation and parents politely refused. Patient did take Tylenol, oral prednisone, we did give him nebulizer treatment and he appears significantly improved. His tachycardia is resolved he has been 92-94% since treatment. Patient respirations have improved as well. He will not allow for oral temperature so has only done temporal he received Tylenol and ibuprofen for this. Discussed with parents they would like to return home he has a pulmonology appointment tomorrow that they very much want to attend. I feel that he is safe for discharge but with strict return precautions. They have home pulse ox, they have nebulizer treatments at home and actually has a steroid inhaler as well. We will start him on cefdinir which he seemed to respond well in February. He does have a right-sided pneumonia with a pleural effusion family actually has the images that they can share with the hazardous materials driver. Discussed low threshold to return as patient could still end up requiring admission. Discharge Plan Departure Patient Disposition: Home Clinical Impression: Pneumonia, Pleural effusion Instructions: DI for Pneumonia -- Adult Activity Restrictions/Additional Instructions: Please follow-up at your appointment with your hazardous materials driver tomorrow. I hope Gennaro continues to feel better this week. Continue with Tylenol and/or ibuprofen as needed for fevers Prescription was sent for cefdinir to take 1 tablet twice daily. Take prednisone until completed. Continue with albuterol every 4 hours as needed. Prescription sent to [facility] in [place]. Please return for worsening symptoms, increased difficulty with breathing, worsening chest pain, persistent vomiting, new swelling of extremities, decreased activity or any new or concerning changes. Prescriptions: New cefdinir 300 mg capsule 300 mg PO BID Qty: 20 0RF prednisone 20 mg tablet 40 mg PO DAILY Qty: 10 0RF No Action albuterol sulfate [Ventolin HFA] 90 MCG/PUFF HFA aerosol inhaler Unknown Qty: 0 levothyroxine 137 mcg tablet fluoxetine 20 mg capsule 30 mg (DME) ResMed AirSense 11 auto See Rx Instructions .ROUTE .MEDSUPPLY Rx Instructions: CPAP Min: 5 Max: 15 DME: [facility] SETUP: Referrals: Gianluca Beckford MD [Primary Care Provider] - Stand Alone Forms: Patient Portal/API
--- NOTE | 2023-04-21 19:59 | DI.RAD.S_ITS ---
PROCEDURE: XR CHEST 1V INDICATIONS: fever, cough, hx of aspiration. TECHNIQUE: One view of the chest was acquired. COMPARISON: [facility], CR, XR CHEST 2V, 05/03/2020, 10:52. FINDINGS: Surgical changes and devices: None. Lungs and pleura: There are confluent airspace opacities in the right lung base consistent with consolidation. A small right pleural effusion is present. No pneumothorax. Mediastinum: Mediastinal contours appear normal. Heart size is normal. Bones and chest wall: No suspicious bony lesions. Overlying soft tissues appear unremarkable. IMPRESSION: 1. Right basilar consolidation likely due to pneumonia given clinical history. 2. Small right parapneumonic pleural effusion. Dictated by: Davey Rehman M.D. on 04/21/2023 at 20:28 Approved by: Davey Rehman M.D. on 04/21/2023 at 20:39
[2023-04-21 20:23] VITALS: TEMP 39.1
[2023-04-21] MEDS: ACETAMINOPHEN 325 MG TABLET 975 MG PO (20:23)
[2023-04-21] MEDS: predniSONE 20 MG TABLET 60 MG PO (20:23)
[2023-04-21 20:39] VITALS: O2SAT 92
[2023-04-21 20:56] VITALS: O2SAT 94
[2023-04-21] MEDS: ALBUTEROL/IPRATROPIUM 3 ML AMPUL INH (20:56)
[2023-04-21 21:16] VITALS: BP 136/72; PULSE 102; RESP 20
[2023-04-21] MEDS: CEFDINIR 300 MG CAPSULE PO (21:44)
== END 2023-04-21 21:50 | disposition home or self-care (01) ==
PROVIDERS: Emergency Provider Emergency Medicine; PCP Internal Medicine
DX: J18.9 Pneumonia, unspecified organism (principal); J90 Pleural effusion, not elsewhere classified
CPT/HCPCS: 71045; 99284

== ENCOUNTER → 2023-05-08 13:56 | Outpatient (CLI) | payer OTHER, MEDICAID, SELFPAY ==
--- NOTE | 2023-05-08 | DI.RAD.S_ITS ---
PROCEDURE: XR CHEST 2V INDICATIONS: J90 TECHNIQUE: 2 views of the chest were acquired. COMPARISON: [facility], CT, CT CHEST WO CON, 05/03/2020, 11:42. [facility], CR, XR CHEST 1V, 04/21/2023, 20:00. [facility], CR, XR CHEST 2V, 05/03/2020, 10:52. FINDINGS: Surgical changes and devices: None. Lungs and pleura: Small right pleural effusion, decreased compared to the last exam. Right basilar opacity may be infiltrate or atelectasis. No pneumothorax. Mediastinum: Mediastinal contours are normal. Heart size is normal. Bones and chest wall: No suspicious bony abnormalities. Soft tissues appear unremarkable. IMPRESSION: 1. Decreased right pleural effusion. Dictated by: Josh Rojas M.D. on 05/08/2023 at 17:10 Approved by: Josh Rojas M.D. on 05/08/2023 at 17:12
== END ==
PROVIDERS: PCP Internal Medicine; Referring Provider Internal Medicine Pulmonary Disease; Visit Provider Internal Medicine Pulmonary Disease
DX: J69.0 Pneumonitis due to inhalation of food and vomit (principal); J90 Pleural effusion, not elsewhere classified
CPT/HCPCS: 71046

== ENCOUNTER → 2023-05-17 16:28 | Outpatient (CLI) | payer OTHER, MEDICAID, SELFPAY ==
[2023-05-17 21:16] LABS: Clostridium Difficile Tox PCR Negative for C. diff (Negative)
== END ==
PROVIDERS: PCP Internal Medicine; Referring Provider Internal Medicine Pulmonary Disease; Visit Provider Internal Medicine Pulmonary Disease
DX: K52.1 Toxic gastroenteritis and colitis (principal)
CPT/HCPCS: 87493

== ENCOUNTER 2023-06-05 13:56 | Emergency (ER) | payer OTHER, MEDICAID, SELFPAY ==
[2023-06-05 14:03] VITALS: RESP 20
[2023-06-05 15:42] VITALS: PULSE 74; RESP 16; O2SAT 97
--- NOTE | 2023-06-05 15:52 | ED_ITS ---
HPI - Recheck/Abnormal Lab/Rx <Smita Redding PA-C - Last Filed: 06/05/23 19:12> General Chief Complaint: Recheck/Abnormal Lab/Rx Stated Complaint: poss reaction to meds Time Seen by Provider: 06/05/23 14:46 Source: patient Mode of arrival: Wheelchair History of Present Illness HPI narrative: Patient is a 37-year-old male with trisomy 21, schizophrenia and OCD who was accompanied by his mother presents for assessment. Mom is a retired lead pastor and a very knowledgeable advocate for patient. She reports his dose of risperidone was recently increased from 1 mg to 2 mg on May 17 by his psychiatrist at [facility]. Since then, mom reports that he has been increasingly slow to move. For example it took her 4 hours of encouragement and moving step by step to get him to shower yesterday. He is not rigid, and his demeanor has not changed significantly. He is not aggressive or irritable. He is a little more sleepy than usual, she reports, and is about 1 hour more per night than previously. He is not had any fever, has been eating and drinking and voiding and stooling normally. Mom contacted the psychiatrist's office and spoke with the nurse practitioner; they felt very strongly that he should be evaluated in the emergency department prior to making any medication changes. Mom reports the last time he required hospitalization he needed to go under anesthesia for a lab draw. She strongly desires not to perform any testing today. Related Data Home Medications Medication Instructions Recorded Confirmed albuterol sulfate 90 mcg/actuation Unknown ##0 12/13/17 03/22/22 aerosol inhaler (Ventolin HFA) fluoxetine 20 mg capsule 30 mg 05/03/20 03/22/22 levothyroxine 137 mcg tablet 05/03/20 03/22/22 ResMed AirSense 11 auto 03/22/22 03/22/22 Previous Rx's Medication Instructions Recorded cefdinir 300 mg capsule 300 mg PO BID #20 caps 04/21/23 prednisone 20 mg tablet 40 mg PO DAILY #10 tabs 04/21/23 Allergies Allergy/AdvReac Type Severity Reaction Status Date / Time No Known Drug Allergies Allergy Verified 04/21/23 20:09 Review of Systems <Smita Redding PA-C - Last Filed: 06/05/23 19:12> Review of Systems ROS Unobtainable: All systems reviewed & are unremarkable except as noted in HPI and below Patient History <Smita Redding PA-C - Last Filed: 06/05/23 19:12> Medical History Down syndrome History of developmental delay Hypothyroidism Mild asthma Obsessive compulsive disorder Social History Smoking Status: Never smoker Smoking Status: Never smoker alcohol intake frequency: a few times a month Alcohol type: wine Substance Use Type: does not use Exam <Smita Reddnig PA-C - Last Filed: 06/05/23 19:12> Narrative Exam Narrative: GENERAL: 37 year old patient with characteristic trisomy 21 facies. NEURO: He is alert, tracking me, making pleasant happy sounds. Immediately gives me a hug on my arrival into the room. He does not speak to me. He follows commands initially, for example, puts his feet on the ground when I ask him to walk, but then swings his legs when his mom and I tried to get him out of the wheelchair and refuses to stand. HEAD: Atraumatic. Normocephalic. EYES: Pupils equal round and reactive. Extraocular motions intact. No scleral icterus. No injection or drainage. ENT: Nose without bleeding or purulent drainage. Airway patent. RESPIRATORY: No distress EXTREMITIES: No edema or joint tenderness. SKIN: No rash or erythema of visible areas Initial Vital Signs Initial Vital Signs: Vital Signs Respiratory Rate 20 06/05/23 14:03 <Jared Rizvi MD - Last Filed: 06/13/23 08:33> Initial Vital Signs Initial Vital Signs: Vital Signs Respiratory Rate 20 06/05/23 14:03 Course <Smita Redding PA-C - Last Filed: 06/05/23 19:12> Vital Signs Vital signs: Vital Signs - 8 hr 06/05/23 14:03 06/05/23 15:42 Pulse Rate 74 Respiratory Rate 20 16 Pulse Oximetry 97 Oxygen Delivery Method Room Air <Jared Rizvi MD - Last Filed: 06/13/23 08:33> Vital Signs Vital signs: Vital Signs - 8 hr 06/05/23 14:03 06/05/23 15:42 Pulse Rate 74 Respiratory Rate 20 16 Pulse Oximetry 97 Oxygen Delivery Method Room Air MDM - Recheck/Abnormal Lab/Rx <Smita Redding PA-C - Last Filed: 06/05/23 19:12> MDM Narrative Medical decision making narrative: Attempted to reach primary psychiatrist at [facility] but was not able to reach her. Called Dr. Posada, [facility] psychiatrist, who kindly agreed to speak with me. He suggested that in the absence of any muscle rigidity, over-sedation, extrapyramidal symptoms, he would suggest returning to the initially tolerated dose of 1 mg of risperidone and continue to monitor. He did not recommend any laboratory tests or other evaluation today. Mom agrees with this plan and expresses her gratitude for assessment and frustration that she was told that she must come to the emergency room before making any medication changes even though she is the primary caregiver and knows the patient very well. Patient's symptoms improved over duration of stay with above-stated therapies. Findings and discharge diagnosis discussed with patient/family followed by verbalization of understanding Return precautions discussed with patient/family whom verbalize understanding of diagnosis and plan Discharge Plan Departure Patient Disposition: Home Clinical Impression: Medication adverse effect Instructions: Tips for Safely Using Medications Activity Restrictions/Additional Instructions: *You have been diagnosed with likely drug reaction. As we discussed, I was able to speak with Dr. Posada, ad [facility] psychiatrist, who agreed with our plan to decrease Carmine's cose to 1mg risperidone daily and follow-up with your primary psychiatrist Dr. Givens. It was a pleasure meeting you today, Carmine. *What to do: *Please continue to take your regular medications as directed. [ ] New medication prescriptions sent to your pharmacy: [ ] [ ] New medication written as a paper prescription [x] No new medications given *Please follow up with your primary care provider in 2-3 days, call for an appointment. Let them know you were seen in the Emergency Department and that we ask that you be seen in follow up. We will electronically transmit a record of today's note if your PCP is in our system *If you do not have a primary care provider please contact the [facility] Resource line at [phone]. They will ask some questions about your medical history and help get you set up with a doctor in the community. *Return to Emergency Department if you should have any new, worsening or concerning symptoms, such as [fever greater than 101 F, shaking chills, worsening pain, persistent vomiting or other concerning symptoms]. Prescriptions: No Action albuterol sulfate [Ventolin HFA] 90 MCG/PUFF HFA aerosol inhaler Unknown Qty: 0 levothyroxine 137 mcg tablet fluoxetine 20 mg capsule 30 mg cefdinir 300 mg capsule 300 mg PO BID Qty: 20 0RF prednisone 20 mg tablet 40 mg PO DAILY Qty: 10 0RF (DME) ResMed AirSense 11 auto See Rx Instructions .ROUTE .MEDSUPPLY Rx Instructions: CPAP Min: 5 Max: 15 DME: [facility] SETUP: Referrals: Gigi Trejo [Other] Gianluca Beckford MD [Primary Care Provider] - Stand Alone Forms: Patient Portal/API <Jared Rizvi MD - Last Filed: 06/13/23 08:33> [facility] I was immediately available in the department for consultation. ?This documentation has been reviewed and I agree with assessment and plan. Supervised by Jared Rizvi MD
== END 2023-06-05 16:48 | disposition home or self-care (01) ==
PROVIDERS: Emergency Provider Physician Assistant; PCP Internal Medicine
DX: R41.82 Altered mental status, unspecified (principal); T43.595A Adverse effect of other antipsychotics and neuroleptics, initial encounter; J69.0 Pneumonitis due to inhalation of food and vomit
CPT/HCPCS: 71046; 99281

== ENCOUNTER → 2023-06-05 16:48 | Outpatient (CLI) | payer OTHER, MEDICAID, SELFPAY ==
--- NOTE | 2023-06-05 | DI.RAD.S_ITS ---
PROCEDURE: XR CHEST 2V INDICATIONS: aspiration pneumonia TECHNIQUE: 2 views of the chest were acquired. COMPARISON: [facility], CR, XR CHEST 2V, 05/08/2023, 14:10. [facility], CR, XR CHEST 1V, 04/21/2023, 20:00. FINDINGS: Surgical changes and devices: None. Lungs and pleura: Decreased right pleural effusion with adjacent atelectasis versus consolidation. Mediastinum: Mediastinal contours are normal. Heart size is normal. Bones and chest wall: No suspicious bony abnormalities. Soft tissues appear unremarkable. IMPRESSION: Decreased right pleural effusion with adjacent atelectasis versus consolidation. Dictated by: Emeka Soto M.D. on 06/06/2023 at 10:39 Approved by: Emeka Soto M.D. on 06/06/2023 at 10:40
== END ==
PROVIDERS: PCP Internal Medicine; Referring Provider Internal Medicine Pulmonary Disease; Visit Provider Internal Medicine Pulmonary Disease
DX: J69.0 Pneumonitis due to inhalation of food and vomit (principal)
CPT/HCPCS: 71046

== ENCOUNTER → 2023-06-21 10:16 | Outpatient (CLI) | payer OTHER, MEDICAID, SELFPAY ==
--- NOTE | 2023-06-21 | DI.CT.S_ITS ---
PROCEDURE: CT CHEST WO CON INDICATIONS: Right pleural effusion. TECHNIQUE: Noncontrast 5 mm thick sections acquired from the pulmonary apices to the posterior costophrenic angles. 1 mm lung window, 5 mm thick coronal and sagittal and 7 mm axial MIP reformats were then acquired. For radiation dose reduction, the following was used: automated exposure control, adjustment of mA and/or kV according to patient size. COMPARISON: [facility], CR, XR CHEST 1V, 04/21/2023, 20:00. [facility], CR, XR CHEST 2V, 05/08/2023, 14:10. [facility], CT, CT CHEST WO CON, 05/03/2020, 11:42. [facility], CR, XR CHEST 2V, 06/05/2023, 17:00. FINDINGS: Image quality: Excellent. Lungs and pleura: There is a small right pleural effusion. Mild bilateral ground-glass infiltrates. No focal consolidation. Right middle lobe, lingula and right lower lobe atelectasis. No pneumothorax. Central and peripheral airways are patent and normal in caliber. Mediastinum: Heart size is normal. No pericardial effusion. No mediastinal adenopathy by size criteria. Thoracic aorta and central pulmonary arteries are normal in size. Esophagus is normal in caliber. Small hiatal hernia. Bones and chest wall: No suspicious bony lesions. No vertebral body compression fractures. No axillary or supraclavicular adenopathy by size criteria. Thyroid gland is normal. Abdomen: Visualized upper abdominal solid organs and bowel loops appear normal in the absence of contrast. IMPRESSION: 1. Small right pleural effusion. 2. Bilateral ground-glass opacities consistent with pneumonitis or pneumonia. 3. Right middle lobe, lingular and right lower lobe atelectasis. 4. Small hiatal hernia. Dictated by: Josh Rojas M.D. on 06/21/2023 at 12:44 Approved by: Josh Rojas M.D. on 06/21/2023 at 12:54
== END ==
PROVIDERS: PCP Internal Medicine; Referring Provider Internal Medicine Pulmonary Disease; Visit Provider Internal Medicine Pulmonary Disease
DX: T17.908A Unspecified foreign body in respiratory tract, part unspecified causing other injury, initial encounter (principal); J90 Pleural effusion, not elsewhere classified; J98.11 Atelectasis; K44.9 Diaphragmatic hernia without obstruction or gangrene
CPT/HCPCS: 71250

== ENCOUNTER 2024-08-17 14:53 | Emergency (ER) | payer MEDICARE, MEDICAID, SELFPAY ==
[2024-08-17 15:17] VITALS: PULSE 83; RESP 18; TEMP 36.9; O2SAT 95
--- NOTE | 2024-08-17 15:25 | DI.RAD.S_ITS ---
PROCEDURE: XR CHEST 2V INDICATIONS: concern for aspiration TECHNIQUE: 2 views of the chest were acquired. COMPARISON: [facility], CR, XR CHEST 2V, 06/05/2023, 17:00. [facility], CR, XR CHEST 2V, 05/08/2023, 14:10. FINDINGS: Surgical changes and devices: Right chest wall generator with probable subglottic lead. Lungs and pleura: Lungs are clear. No pleural effusions or pneumothorax. Mediastinum: Mediastinal contours are normal. Heart size is normal. Bones and chest wall: No suspicious bony abnormalities. Soft tissues appear unremarkable. IMPRESSION: No acute cardiopulmonary abnormality is seen. Dictated by: Constantine Baird M.D. on 08/17/2024 at 16:19 Approved by: Constantine Baird M.D. on 08/17/2024 at 16:19
--- NOTE | 2024-08-17 18:12 | PC.NURSE ---
RN called out to [facility] by family for concerns of wheezing. RN assessed pt in [facility], some inspiratory wheezes noted with auscultation. HR and O2 checked and WNL. Pt brought back to room 3 for eval and treat.
[2024-08-17 18:17] VITALS: PULSE 91; O2SAT 97
[2024-08-17] MEDS: ALBUTEROL 2.5 MG/3 ML NEB (ADULT) INH (18:36)
== END 2024-08-17 19:12 | disposition left against medical advice (07) ==
PROVIDERS: Emergency Provider Emergency Medicine; PCP Family Medicine
DX: R09.89 Other specified symptoms and signs involving the circulatory and respiratory systems (principal); R05.9 Cough, unspecified; R06.2 Wheezing; Q90.9 Down syndrome, unspecified
CPT/HCPCS: 71046; 99283; J7613

== ENCOUNTER 2024-12-15 14:46 | Emergency (ER) | payer OTHER, MEDICAID, SELFPAY ==
[2024-12-15 14:59] VITALS: BP 109/72; PULSE 84; RESP 16; TEMP 36.4; O2SAT 97; BMI 35.2
[2024-12-15 15:12] LABS: Appearance Urine UA CLEAR; Bilirubin Urine UA NEGATIVE (NEGATIVE); Color Urine UA YELLOW; Glucose Urine UA NEGATIVE (Negative); Ketones Urine UA NEGATIVE (NEGATIVE); Leukocyte Esterase Urine UA NEGATIVE (NEGATIVE); Nitrite Urine UA NEGATIVE (Negative); Occult Blood Urine UA NEGATIVE (Negative); Protein Urine UA NEGATIVE (Negative); Specific Gravity Urine UA 1.015 (1.000-1.035); Urobilinogen Urine UA 0.2 E.U./dL (0.2); pH Urine UA 7.5 (4.5-8.0)
[2024-12-15 15:19] LABS: Bacteria Urine Occasional (0-1); Culture Indicated Urine Cult Not Indicated; RBC Urine 0-1/HPF (0-5/HPF); Squamous Epithelial Cell Urine 0-1 /HPF (0-5/HPF); Urine Volume 10mL (spun); WBC Urine 0-1/HPF (0-5/HPF)
--- NOTE | 2024-12-15 17:07 | ED.MALEGU ---
HPI - Male Genitourinary General Chief complaint: Urogenital-Male Stated complaint: UTI Time Seen by Provider: 12/15/24 17:05 History of Present Illness HPI Narrative: 39-year-old male with past medical history down syndrome, largely nonverbal at baseline brought in by father for a positive UTI home test. Patient's mother is a retired press cutter, did a urine dipstick at home, the test was positive for leukocyte esterase and negative for nitrates. Patient's mother did this test following a episode of bedwetting/ incontinence last night. Patient's father states that patient has historically bed wet it when he had a UTI. Patient is unable to relate his symptoms or discomfort, being that he is nonverbal at baseline. Patient's father denies that patient has had a fever, chills, vomiting. Patient is tolerating p.o. well. Related Data Home Medications Medication Instructions Recorded Confirmed ResMed AirSense 11 auto 03/22/22 11/22/23 melatonin 5 mg capsule mg PO 11/22/23 08/05/24 Previous Rx's Medication Instructions Recorded albuterol sulfate 90 mcg/actuation 2 puff inhalation Q3-4H #8.5 grams 11/22/23 aerosol inhaler (Ventolin HFA) fluoxetine 20 mg capsule 40 mg (2 x 20 mg) PO DAILY #180 11/22/23 caps levothyroxine 137 mcg tablet 137 mcg PO DAILY #90 tabs 11/22/23 risperidone 0.5 mg tablet 0.5 mg PO BEDTIME #90 tabs 12/10/24 cephalexin 500 mg capsule 500 mg PO QID 10 days #40 caps 12/15/24 Allergies Allergy/AdvReac Type Severity Reaction Status Date / Time No Known Drug Allergies Allergy Verified 08/05/24 13:14 Review of Systems Review of Systems Narrative: ROS was obtained from patient's father. Unable to obtain ROS from patient due to nonverbal from Down's syndrome Constitutional Constitutional: Denies chills, Denies fatigue, Denies fever(s), Denies frequent falls, Denies lethargy and Denies weakness Eyes Eyes: Denies change in vision, Denies eye discharge, Denies irritation and Denies loss of vision ENT Ears, Nose, Mouth, and Throat: Denies change in voice, Denies dizziness, Denies neck pain, Denies sore throat and Denies throat swelling Cardiovascular Cardiovascular: Denies chest pain, Denies irregular heart rhythm, Denies lightheadedness, Denies palpitations, Denies dyspnea, Denies dyspnea on exertion and Denies orthopnea Respiratory Respiratory: Denies cough, Denies dyspnea, Denies dyspnea on exertion and Denies wheezing Gastrointestinal Gastrointestinal: Denies abdominal pain, Denies change in bowel habits, Denies diarrhea, Denies nausea and Denies vomiting Musculoskeletal Musculoskeletal: Denies neck pain and Denies numbness Integumentary/Breasts Skin/Breast: Denies pruritus, Denies erythema, Denies rash and Denies wounds Neurologic Neurologic: Denies behavioral changes, Denies confusion, Denies dizziness, Denies frequent falls, Denies loss of vision, Denies numbness and Denies weakness Psychiatric Psychiatric: Denies anxiety, Denies behavioral changes, Denies confusion, Denies depression, Denies homicidal ideation and Denies suicidal ideation Endocrine Endocrine: Denies fatigue, Denies flushing and Denies palpitations Hematologic/Lymphatic Hematologic/Lymphatic: Denies easy bruising Allergic/Immunologic Allergic/Immunologic: Denies urticaria, Denies throat swelling and Denies wheezing Patient History Medical History Obstructive sleep apnea syndrome Asthma Insomnia History of aspiration pneumonia Hypothyroidism (acquired) Mild asthma Hypothyroidism History of developmental delay Down syndrome Obsessive compulsive disorder Social History Smoking Status: Never smoker Smoking Status: Never smoker alcohol intake frequency: a few times a month Alcohol type: wine Exam Narrative Exam Narrative: Const General:?cooperative, and comfortable [facility] Head:?normal to inspection Ears:?hearing grossly normal bilaterally Nose:?external nose normal Eyes General:?appearance normal, both eyes and all related structures Neck Neck:?normal visual inspection and no lymphadenopathy noted Resp Effort & Inspection:?normal respiratory effort Auscultation:?clear to auscultation bilaterally Cardio Rate:?regular rate Rhythm:?regular rhythm Neuro General:?patient alert, patient awake, nonverbal due to Downs at baseline. Initial Vital Signs Initial Vital Signs: Vital Signs Temperature 97.6 F 12/15/24 14:59 Pulse Rate 84 12/15/24 14:59 Respiratory Rate 16 12/15/24 14:59 Blood Pressure 109/72 12/15/24 14:59 Pulse Oximetry 97 12/15/24 14:59 Oxygen Delivery Method Room Air 12/15/24 14:59 Course Orders Ordered: ED Orders 12/15/24 14:00 Urinalysis and Microscopic Stat Vital Signs Vital signs: Vital Signs - 8 hr 12/15/24 14:59 Temperature 97.6 F Pulse Rate 84 Respiratory Rate 16 Blood Pressure 109/72 Pulse Oximetry 97 Oxygen Delivery Method Room Air MDM - Male Genitourinary Lab Data Labs: Lab Results 12/15/24 Range/Units 14:00 Urine Color Yellow Urine Appearance Clear Urine pH 7.5 (4.5-8.0) Ur Specific [place] 1.015 (1.000-1.035) Urine Protein Negative (Negative) Urine Glucose (UA) Negative (Negative) g/dL Urine Ketones Negative (NEGATIVE) Urine Occult Blood Negative (Negative) Urine Nitrate Negative (Negative) Urine Bilirubin Negative (NEGATIVE) Urine Urobilinogen 0.2 (0.2) E.U./dL Ur Leukocyte Esterase Negative (NEGATIVE) Urine RBC 0-1/hpf (0-5/HPF) Urine WBC 0-1/hpf (0-5/HPF) Ur Squamous Epith Cells 0-1 /hpf (0-5/HPF) Urine Bacteria Occasional (0-1) (None) Ur Culture Indicated? Cult not indicated Vol Urine Centrifuged 10ml (spun) MDM Narrative Medical decision making narrative: 39-year-old male with past medical history down syndrome, largely nonverbal at baseline brought in by father for a positive UTI home test. Discussed with patient's father that the urine dip in the ED was negative across the board. However, given that patient has historically had a UTI with bedwetting, provided a prescription for Keflex which has worked for the patient in the past. Patient's father agreed that they would decide to use the prescription if patient's symptoms worsen. ED return precautions were discussed with patient's father. He verbalized understanding. Medical records reviewed: Yes Discharge Plan Departure Patient Disposition: Home Clinical Impression: UTI (urinary tract infection) Qualifiers: Urinary tract infection type: site unspecified Hematuria presence: without hematuria Qualified Code(s): N39.0 - Urinary tract infection, site not specified Instructions: DI for Urinary Tract Infection (UTI) Activity Restrictions/Additional Instructions: Gennaro was evaluated in the ED today for an episode of bedwetting, which is usually associated with a UTI. We understand that your home UTI test was positive for leukocyte esterase. However our test in the ED was negative. However, we are sending you home with a prescription for Keflex in the event that Gennaro's symptoms worsen and he does come down with a UTI. Please follow-up with Gennaro's PCP as soon as possible. Return to the ED if he has worsening symptoms. Medical records reviewed: Yes Prescriptions: New cephalexin 500 mg capsule 500 mg PO QID 10 Days Qty: 40 0RF No Action risperidone 0.5 mg tablet 0.5 mg PO BEDTIME Qty: 90 3RF melatonin 5 mg capsule PO levothyroxine 137 mcg tablet 137 mcg PO DAILY Qty: 90 3RF fluoxetine 20 mg capsule 40 mg PO DAILY Qty: 180 3RF albuterol sulfate [Ventolin HFA] 90 mcg/actuation HFA aerosol inhaler 2 puff inhalation Q3-4H Qty: 8.5 3RF (DME) ResMed AirSense 11 auto See Rx Instructions .Route .MEDSUPPLY Rx Instructions: CPAP Min: 5 Max: 15 DME: [facility] SETUP: Referrals: Miky Toure DO [Primary Care Provider] - Stand Alone Forms: Patient Portal/API/Survey
== END 2024-12-15 17:51 | disposition home or self-care (01) ==
PROVIDERS: Family Medicine; Emergency Provider Student in an Organized Health Care Education/Training Program; PCP Family Medicine
DX: N39.0 Urinary tract infection, site not specified (principal)
CPT/HCPCS: 81001; 99281; 99282